=== PATIENT | female | born 1985 | race African-American/Black ===

== ENCOUNTER → 2023-12-21 | Outpatient (CLI) | payer OTHER ==
[~2023-12-21] MED LIST: COLA50CA3 PO; IBUP80TA PO; OXYC1TAB23 PO
== END ==
LOC: M WHC 09:54
PROVIDERS: ATTEND Family Medicine
DX: Z12.31 Encounter for screening mammogram for malignant neoplasm of breast (principal); R92.333 Mammographic heterogeneous density, bilateral breasts

== ENCOUNTER 2024-05-08 09:27 | Day surgery (SDC) | payer OTHER ==
[~2024-05-08] VITALS: Ht 157.5 cm; Wt 71.7 kg
[~2024-05-08 09:27] MED LIST changes: +FERR325T82 PO; +MIRA3350 PO; +VITA100093 PO
[2024-05-08] MEDS ORDERED: LIDOCAINE 2% 100MG/5ML SDV (FOR ANES.) As Ordered ONE (10:56)
[2024-05-08] MEDS ORDERED: fentaNYL 100 MCG/2 ML INJECTION As Ordered ONE (10:56)
[2024-05-08] MEDS ORDERED: propofoL 200 MG/20 ML VIAL As Ordered ONE (10:56)
[2024-05-08 11:41] VITALS: TEMP 96.7
[2024-05-08 12:00] VITALS: BP 128/89; O2SAT 100
== END 2024-05-08 12:07 | disposition home or self-care (01) ==
LOC: M OPP 09:27
PROVIDERS: ATTEND Internal Medicine Gastroenterology
DX: K64.8 Other hemorrhoids (principal); D50.9 Iron deficiency anemia, unspecified; K58.1 Irritable bowel syndrome with constipation; Z79.899 Other long term (current) drug therapy
CPT/HCPCS: 43239; 45378; 88305; J3010